=== PATIENT | female | born 1940 | race Caucasian/White ===

== ENCOUNTER 2018-12-04 11:45 | Emergency (ER) | payer MEDICARE, MEDICAID, SELFPAY ==
[2018-12-04] VITALS (43 sets, daily range): BP systolic 94–148; BP diastolic 40–68; PULSE 70–82; RESP 11–30; TEMP 37; O2SAT 90–99
--- NOTE | 2018-12-04 12:21 | W.ED.GENAD ---
Discharge Plan Disposition Patient Disposition: [facility] Condition: Improving Discharge Details Chief Complaint: Fever Clinical Impression: SIRS (systemic inflammatory response syndrome) Reason For Visit: YUNIOR Primary Care Provider: Serene Reddy ED Provider: Juan Diego Vidal Home Meds and New Rx's Prescriptions: No Action levothyroxine 137 MCG tablet 137 mcg PO DAILY RF: 0 atorvastatin [Lipitor] 80 MG tablet 80 mg PO DAILY RF: 0 metoprolol succinate 50 MG tablet extended release 24 hr 75 mg PO BID RF: 0 fexofenadine 180 MG tablet 180 mg PO DAILY RF: 0 aspirin [Aspirin Low Dose] 81 MG tablet,delayed release (DR/EC) 81 mg PO DAILY RF: 0 calcium carbonate 600 MG tablet 600 mg PO DAILY RF: 0 magnesium oxide 400 MG tablet 400 mg PO BID RF: 0 ferrous sulfate [iron] 325 MG tablet 325 mg PO DAILY RF: 0 nitroglycerin [Nitrostat] 0.4 MG tablet, sublingual 0.4 mg Sublingual DIRECTED PRNRF: 0 docusate sodium [Colace] 100 MG capsule 200 mg PO DAILY RF: 0 hydralazine 50 MG tablet 50 mg PO BID RF: 0 multivitamin 1 EACH capsule 1 ea PO DAILY RF: 0 lisinopril 2.5 MG tablet 2.5 mg PO DAILY RF: 0 diltiazem HCl 90 MG tablet 180 mg PO DAILY RF: 0 insulin aspart U-100 [Novolog PenFill U-100 Insulin] 100 UNIT/1 ML cartridge 40 u Sub-Q DAILY RF: 0 escitalopram oxalate 10 MG tablet 10 mg PO DAILY RF: 0 omega-3 fatty acids-fish oil [Fish Oil] 1 EACH capsule 1 ea PO DAILY RF: 0 insulin lispro [Humalog U-100 Insulin] 100 UNIT/1 ML cartridge RF: 0 insulin lispro [Humalog KwikPen Insulin] 100 UNIT/1 ML insulin pen RF: 0 sevelamer carbonate [Renvela] 800 MG tablet 800 mg PO TID RF: 0 insulin glargine [Lantus Solostar U-100 Insulin] 300 UNITS/3 ML insulin pen 20 unit SQ DAILY RF: 0 acetaminophen 650 MG tablet extended release 650 mg PO Q6H PRN PRNRF: 0 cholecalciferol (vitamin D3) [Vitamin D3] 400 UNIT capsule 400 unit PO DAILY RF: 0 Medical Decision Making 69-year-old female presents from dialysis with fever. She has history of sepsis with MRSA bacteremia in the past. At dialysis she was given acetaminophen, blood cultures were obtained. She is followed by Dr. Hdz. She arrives afebrile and otherwise well-appearing. Patient has a history of dialysis catheter infections in the past. She does continue to make urine. Differential diagnosis includes influenza, urinary tract infection, chest catheter infection. Blood cultures obtained in addition to that obtained at dialysis. Patient had screening laboratories obtained. She has an elevated white blood cell count of 19 with a lactic acid of 2.4. Troponin is negative and the remainder of her chemistries are reassuring. Case discussed with on-call nephrology at [facility], they are on able to accept in transfer due to lack of bed availability. They recommend admission, 15 mg/kg of vancomycin and if there is some correction of her white blood cell count and lactic acidosis she may be discharged to home with next dose of antibiotics in dialysis. Case discussed with Dr De La Fuente who states he feels he must refuse admission given patients history of MWF hemodialysis. The patient had received 1 g of vancomycin at dialysis and additional 500 mg was administered in the ED. [facility] contacted, case discussed with hospitalist, and they have placed the patient on waiting list for inpatient bed but unable to accept due to lack of available bed at this time. I called back [facility] who states they hope to be able to make a bed the patient this afternoon. They agree with ongoing management and patient accepted to Dr Richter service.. ECG Data Attestation: I personally reviewed and interpreted this ECG (s) as follows: Interpretation: Normal sinus rhythm, rate of 80, QRS is narrow, there are T wave inversions present in inferolateral leads without ST segment elevation HPI General Mode of arrival: EMS. Date/Time Provider Initiated Documentation: 12/04/18 11:50. Limitations to Documentation: no limitations. Information obtained by: patient and EMS. History of Present Illness 77 year old F presents to the emergency department with the chief complaint of Fever and chills at dialysis this morning, described as moderate, Patient started experiencing this minute(s) and it has been now resolved. No relieving factors improve symptom(s), No exacerbating factors reported . Patient notes no other symptoms.. Patient did receive the following treatments prior to arrival, none HPI Narrative: 69-year-old female presents from dialysis stating that she awoke this morning feeling normal, felt slight chills at home and then developed a fever at dialysis. She had a complete dialysis run and then was brought to the ER by EMS Related Data Home Medications Medication Instructions Recorded Confirmed aspirin [Low Dose Aspirin Ec] 81 mg PO DAILY tab-cap NS 08/20/16 01/26/18 atorvastatin [Lipitor] 80 mg PO DAILY tab-cap NS 08/20/16 01/26/18 calcium carbonate 600 mg PO DAILY NS 08/20/16 01/26/18 diltiazem HCl 180 mg PO DAILY NS 08/20/16 01/26/18 docusate sodium [Colace] 200 mg PO DAILY tab-cap NS 08/20/16 01/26/18 escitalopram oxalate 10 mg PO DAILY tab-cap NS 08/20/16 01/26/18 ferrous sulfate [Iron] 325 mg PO DAILY NS 08/20/16 01/26/18 fexofenadine 180 mg PO DAILY tab-cap NS 08/20/16 12/10/16 hydralazine 50 mg PO BID tab-cap NS 08/20/16 01/26/18 insulin aspart U-100 [Novolog] 40 u SUB-Q DAILY NS 08/20/16 01/24/17 levothyroxine 137 mcg PO DAILY tab-cap NS 08/20/16 01/26/18 lisinopril 2.5 mg PO DAILY tab-cap NS 08/20/16 01/26/18 magnesium oxide 400 mg PO BID NS 08/20/16 01/26/18 metoprolol succinate 75 mg PO BID tab-cap NS 08/20/16 01/26/18 multivitamin 1 ea PO DAILY NS 08/20/16 01/26/18 nitroglycerin [Nitrostat] 0.4 mg SUBLINGUAL DIRECTED PRN 08/20/16 01/26/18 NS omega-3 fatty acids-fish oil [Fish 1 ea PO DAILY NS 08/20/16 01/26/18 Oil 1,000 Mg Capsule] insulin glargine [Lantus Solostar 20 unit SQ DAILY 12/10/16 12/10/16 U-100 Insulin] acetaminophen 650 mg PO Q6H PRN PRN 01/24/17 01/26/18 cholecalciferol (vitamin D3) 400 unit PO DAILY 01/24/17 01/24/17 [Vitamin D] insulin lispro [Humalog Syringe] NS 06/03/17 insulin lispro [Humalog] NS 06/03/17 sevelamer carbonate [Renvela] 800 mg PO TID tab-cap NS 06/03/17 01/26/18 Allergies Allergy/AdvReac Type Severity Reaction Status Date / Time adhesive tape Allergy Unverified 01/26/18 14:50 gabapentin Allergy Unverified 01/26/18 14:50 hydroxyzine Allergy Unverified 01/26/18 14:50 lorazepam Allergy Unverified 01/26/18 14:50 nitroglycerin Allergy Unverified 01/26/18 14:50 [From Nitro-Dur] pregabalin [From Lyrica] Allergy Unverified 01/26/18 14:50 General Stated Complaint: Fever JADA: 2 Review of Systems Review of Systems 8 systems reviewed and otherwise negative PFSH Medical History Firocyst with benign ductal hyperplasia Hyperthyroidism [place] (myocardial infarction) Moderate nonproliferative diabetic retinopathy of both eyes Nuclear Sclerosis, Bilateral Tubular adenoma of colon Type 2 diabetes mellitus Surgical History Amputation Bilateral above knee amputations Cholecystectomy Colonoscopy (09/18/16) Colporrhaphy Coronary Stent Femoral Endarectomy Hysterectomy Family History Father Colon cancer Exam Narrative Exam Narrative: GEN: awake, alert, oriented 3. Pleasant, well groomed, interactive. HEAD: Normocephalic, atraumatic ENT: Mucous membranes moist, oropharynx unremarkable, External ear exam unremarkable EYES: PERRL, EOMI NECK: Full ROM, no MONIK, no menigismus CHEST/RESP: Right anterior chest dialysis catheter, nontender, clear to auscultation bilateral, no wheeze/rhonchi/rales CARDIOVASCULAR: RRR, no murmur, rub savanah. 2+ Rad pulse bilateral ABDOMEN: Soft, nontender, no mass. +Bowel sounds EXT: Bilateral [id number] amputation, no edema, no rash Neuro: Grossly normal neurologic exam, conversant, interactive. Psych: Speech fluent, thoughts congruent, affect normal exam Course Vital Signs Temperature 37 C 12/04/18 11:56 Pulse 80 12/04/18 11:56 Respiratory Rate 14 12/04/18 11:56 Blood Pressure 105/44 L 12/04/18 11:56 Pulse Oximetry 98 12/04/18 11:56 Temperature 37 C 12/04/18 11:56 Temperature Source Skin 12/04/18 11:56 Pulse 80 12/04/18 11:56 Respiratory Rate 14 12/04/18 11:56 Blood Pressure 105/44 L 12/04/18 11:56 Blood Pressure Position Supine 12/04/18 11:56 Pulse Oximetry 98 12/04/18 11:56 Oxygen Delivery Method Room Air 12/04/18 11:56 Oxygen Flow Rate 0 12/04/18 11:56 Pain Level 0 12/04/18 11:56 Lab/Test Results Lab/Test Results: 12/04/18 12:19 Blood Blood Culture - Pending 12/04/18 12:19 Blood Blood Culture - Pending
--- NOTE | 2018-12-04 12:24 | ED.GENADUL_ITS ---
Discharge Plan Disposition Patient Disposition: [facility] Condition: Improving Discharge Details Chief Complaint: Fever Clinical Impression: SIRS (systemic inflammatory response syndrome) Reason For Visit: YUNIOR Primary Care Provider: Serene Reddy ED Provider: Juan Diego Vidal Home Meds and New Rx's Prescriptions: No Action levothyroxine 137 MCG tablet 137 mcg PO DAILY RF: 0 atorvastatin [Lipitor] 80 MG tablet 80 mg PO DAILY RF: 0 metoprolol succinate 50 MG tablet extended release 24 hr 75 mg PO BID RF: 0 fexofenadine 180 MG tablet 180 mg PO DAILY RF: 0 aspirin [Aspirin Low Dose] 81 MG tablet,delayed release (DR/EC) 81 mg PO DAILY RF: 0 calcium carbonate 600 MG tablet 600 mg PO DAILY RF: 0 magnesium oxide 400 MG tablet 400 mg PO BID RF: 0 ferrous sulfate [iron] 325 MG tablet 325 mg PO DAILY RF: 0 nitroglycerin [Nitrostat] 0.4 MG tablet, sublingual 0.4 mg Sublingual DIRECTED PRNRF: 0 docusate sodium [Colace] 100 MG capsule 200 mg PO DAILY RF: 0 hydralazine 50 MG tablet 50 mg PO BID RF: 0 multivitamin 1 EACH capsule 1 ea PO DAILY RF: 0 lisinopril 2.5 MG tablet 2.5 mg PO DAILY RF: 0 diltiazem HCl 90 MG tablet 180 mg PO DAILY RF: 0 insulin aspart U-100 [Novolog PenFill U-100 Insulin] 100 UNIT/1 ML cartridge 40 u Sub-Q DAILY RF: 0 escitalopram oxalate 10 MG tablet 10 mg PO DAILY RF: 0 omega-3 fatty acids-fish oil [Fish Oil] 1 EACH capsule 1 ea PO DAILY RF: 0 insulin lispro [Humalog U-100 Insulin] 100 UNIT/1 ML cartridge RF: 0 insulin lispro [Humalog KwikPen Insulin] 100 UNIT/1 ML insulin pen RF: 0 sevelamer carbonate [Renvela] 800 MG tablet 800 mg PO TID RF: 0 insulin glargine [Lantus Solostar U-100 Insulin] 300 UNITS/3 ML insulin pen 20 unit SQ DAILY RF: 0 acetaminophen 650 MG tablet extended release 650 mg PO Q6H PRN PRNRF: 0 cholecalciferol (vitamin D3) [Vitamin D3] 400 UNIT capsule 400 unit PO DAILY RF: 0 Medical Decision Making 69-year-old female presents from dialysis with fever. She has history of sepsis with MRSA bacteremia in the past. At dialysis she was given acetaminophen, blood cultures were obtained. She is followed by Dr. Hdz. She arrives afebrile and otherwise well-appearing. Patient has a history of dialysis catheter infections in the past. She does continue to make urine. Differential diagnosis includes influenza, urinary tract infection, chest catheter infection. Blood cultures obtained in addition to that obtained at dialysis. Patient had screening laboratories obtained. She has an elevated white blood cell count of 19 with a lactic acid of 2.4. Troponin is negative and the remainder of her chemistries are reassuring. Case discussed with on-call nephrology at [facility], they are on able to accept in transfer due to lack of bed availability. They recommend admission, 15 mg/kg of vancomycin and if there is some correction of her white blood cell count and lactic acidosis she may be discharged to home with next dose of antibiotics in dialysis. Case discussed with Dr De La Fuente who states he feels he must refuse admission given patients history of MWF hemodialysis. The patient had received 1 g of vancomycin at dialysis and additional 500 mg was administered in the ED. [facility] contacted, case discussed with hospitalist, and they have placed the patient on waiting list for inpatient bed but unable to accept due to lack of available bed at this time. I called back [facility] who states they hope to be able to make a bed the patient this afternoon. They agree with ongoing management and patient accepted to Dr Richter service.. ECG Data Attestation: I personally reviewed and interpreted this ECG (s) as follows: Interpretation: Normal sinus rhythm, rate of 80, QRS is narrow, there are T wave inversions present in inferolateral leads without ST segment elevation HPI General Mode of arrival: EMS . Date/Time Provider Initiated Documentation: 12/04/18 11:50 . Limitations to Documentation: no limitations . Information obtained by: patient and EMS . History of Present Illness 77 year old F presents to the emergency department with the chief complaint of Fever and chills at dialysis this morning, described as moderate, Patient started experiencing this minute(s) and it has been now resolved. No relieving factors improve symptom(s), No exacerbating factors reported . Patient notes no other symptoms.. Patient did receive the following treatments prior to arrival, none HPI Narrative: 69-year-old female presents from dialysis stating that she awoke this morning feeling normal, felt slight chills at home and then developed a fever at dialysis. She had a complete dialysis run and then was brought to the ER by EMS Related Data Home Medications Medication Instructions Recorded Confirmed aspirin [Low Dose Aspirin Ec] 81 mg PO DAILY tab-cap NS 08/20/16 01/26/18 atorvastatin [Lipitor] 80 mg PO DAILY tab-cap NS 08/20/16 01/26/18 calcium carbonate 600 mg PO DAILY NS 08/20/16 01/26/18 diltiazem HCl 180 mg PO DAILY NS 08/20/16 01/26/18 docusate sodium [Colace] 200 mg PO DAILY tab-cap NS 08/20/16 01/26/18 escitalopram oxalate 10 mg PO DAILY tab-cap NS 08/20/16 01/26/18 ferrous sulfate [Iron] 325 mg PO DAILY NS 08/20/16 01/26/18 fexofenadine 180 mg PO DAILY tab-cap NS 08/20/16 12/10/16 hydralazine 50 mg PO BID tab-cap NS 08/20/16 01/26/18 insulin aspart U-100 [Novolog] 40 u SUB-Q DAILY NS 08/20/16 01/24/17 levothyroxine 137 mcg PO DAILY tab-cap NS 08/20/16 01/26/18 lisinopril 2.5 mg PO DAILY tab-cap NS 08/20/16 01/26/18 magnesium oxide 400 mg PO BID NS 08/20/16 01/26/18 metoprolol succinate 75 mg PO BID tab-cap NS 08/20/16 01/26/18 multivitamin 1 ea PO DAILY NS 08/20/16 01/26/18 nitroglycerin [Nitrostat] 0.4 mg SUBLINGUAL DIRECTED PRN 08/20/16 01/26/18 NS omega-3 fatty acids-fish oil [Fish 1 ea PO DAILY NS 08/20/16 01/26/18 Oil 1,000 Mg Capsule] insulin glargine [Lantus Solostar 20 unit SQ DAILY 12/10/16 12/10/16 U-100 Insulin] acetaminophen 650 mg PO Q6H PRN PRN 01/24/17 01/26/18 cholecalciferol (vitamin D3) 400 unit PO DAILY 01/24/17 01/24/17 [Vitamin D] insulin lispro [Humalog Syringe] NS 06/03/17 insulin lispro [Humalog] NS 06/03/17 sevelamer carbonate [Renvela] 800 mg PO TID tab-cap NS 06/03/17 01/26/18 Allergies Allergy/AdvReac Type Severity Reaction Status Date / Time adhesive tape Allergy Unverified 01/26/18 14:50 gabapentin Allergy Unverified 01/26/18 14:50 hydroxyzine Allergy Unverified 01/26/18 14:50 lorazepam Allergy Unverified 01/26/18 14:50 nitroglycerin Allergy Unverified 01/26/18 14:50 [From Nitro-Dur] pregabalin [From Lyrica] Allergy Unverified 01/26/18 14:50 General Stated Complaint: Fever JADA: 2 Review of Systems Review of Systems 8 systems reviewed and otherwise negative PFSH Medical History Firocyst with benign ductal hyperplasia Hyperthyroidism [place] (myocardial infarction) Moderate nonproliferative diabetic retinopathy of both eyes Nuclear Sclerosis, Bilateral Tubular adenoma of colon Type 2 diabetes mellitus Surgical History Amputation Bilateral above knee amputations Cholecystectomy Colonoscopy (09/18/16) Colporrhaphy Coronary Stent Femoral Endarectomy Hysterectomy Family History Father Colon cancer Exam Narrative Exam Narrative: GEN: awake, alert, oriented 3. Pleasant, well groomed, interactive. HEAD: Normocephalic, atraumatic ENT: Mucous membranes moist, oropharynx unremarkable, External ear exam unremar kable EYES: PERRL, EOMI NECK: Full ROM, no MONIK, no menigismus CHEST/RESP: Right anterior chest dialysis catheter, nontender, clear to auscultation bilateral, no wheeze/rhonchi/rales CARDIOVASCULAR: RRR, no murmur, rub savanah. 2+ Rad pulse bilateral ABDOMEN: Soft, nontender, no mass. +Bowel sounds EXT: Bilateral [id number] amputation, no edema, no rash Neuro: Grossly normal neurologic exam, conversant, interactive. Psych: Speech fluent, thoughts congruent, affect normal exam Course Vital Signs Temperature 37 C 12/04/18 11:56 Pulse 80 12/04/18 11:56 Respiratory Rate 14 12/04/18 11:56 Blood Pressure 105/44 L 12/04/18 11:56 Pulse Oximetry 98 12/04/18 11:56 Temperature 37 C 12/04/18 11:56 Temperature Source Skin 12/04/18 11:56 Pulse 80 12/04/18 11:56 Respiratory Rate 14 12/04/18 11:56 Blood Pressure 105/44 L 12/04/18 11:56 Blood Pressure Position Supine 12/04/18 11:56 Pulse Oximetry 98 12/04/18 11:56 Oxygen Delivery Method Room Air 12/04/18 11:56 Oxygen Flow Rate 0 12/04/18 11:56 Pain Level 0 12/04/18 11:56 Lab/Test Results Lab/Test Results: 12/04/18 12:19 Blood Blood Culture - Pending 12/04/18 12:19 Blood Blood Culture - Pending
[2018-12-04 12:37] LABS: Abs Immature Grans 0.08 k/cumm (0.0-0.09); HCT 41.8 % (36.0-46.0); HGB 12.9 g/dL (12.0-15.5); Mean Corp. HGB Concentration 30.9 g/dL (32.0-36.0); Mean Corpuscular Hemoglobin 31.5 pg (27.0-33.0); Mean Corpuscular Volume 102.2 fL (80-95); Mean Platelet Volume 9.2 fL (8.0-11.0); Platelet Count 207 x1000/uL (130-400); RBC 4.09 m/cumm (4.00-5.20); RBC Distribution Width 18.5 % (11.7-14.6); White Blood Cell Count 19.62 k/cumm (4.4-10.8)
[2018-12-04 12:38] LABS: Lactate 2.4 mmol/L (0.6-1.4)
[2018-12-04 13:02] LABS: Troponin I 0.03 ng/mL (0.00-0.06)
[2018-12-04 13:03] LABS: ALT 13 U/L (12-78); AST 16 U/L (15-37); Alkaline Phosphatase 117 U/L (46-116); Anion Gap 7.6 mmol/L (3-11); BUN 11 mg/dL (7-18); Bilirubin, Total 0.5 mg/dL (0.2-1.0); C-Reactive Protein 1.67 mg/dL (0.0-0.3); CO2 32.4 mmol/L (21.0-32.0); CREATININE 3.03 mg/dL (0.55-1.02); Calcium 9.3 mg/dL (8.5-10.1); Chloride 99 mmol/L (98-107); Estimated GFR 14.92 (mL/min/1.73m2); Glucose 131 mg/dL (70-100); Potassium 3.8 mmol/L (3.5-5.1); Sodium 139 mmol/L (136-145); Total Protein 6.9 g/dL (6.4-8.2)
[2018-12-04 13:15] LABS: Absolute Neutrophil Count 17.27 k/cumm (1.2-6.7)
[2018-12-04 13:16] LABS: Absolute Eosinophil Count 0.39 k/cumm (0.0-0.7); Absolute Lymphocyte Count 1.37 k/cumm (1.2-3.4); Absolute Monocyte Count 0.59 k/cumm (0.11-0.7); Diff Comment Manual Differential; Nucleated RBC 1 /100WBC
[2018-12-04 13:17] LABS: Macrocytosis 1+
[2018-12-04 13:40] LABS: Bilirubin Moderate (Negative); Blood Trace-intact (Negative); Clarity Sl Cloudy; Glucose Negative (Negative); Ketones 15 mg/dL (Negative); Leukocyte Esterase Small (Negative); Nitrite Negative (Negative); Urobilinogen 0.2 EU/dL (Up TO 0.2); pH 5.5 (5-8)
--- NOTE | 2018-12-04 13:45 | DI.RAD_ITS ---
SYMPTOMS/DIAGNOSIS: FEVER AP AND LATERAL CHEST: There is a right subclavian catheter in position. The tip of which appears to lie near the junction of right atrium and superior vena cava, unchanged in position from 01/26/18. The heart is not enlarged. The lungs are grossly clear. CONCLUSION: No evidence of acute change.
[2018-12-04 13:53] LABS: Epithelial Cells Many HPF (Negative)
[2018-12-04 13:54] LABS: C & S Indicated? No/Sq. Contamination
[2018-12-04] MEDS: VANCOMYCIN 1,500 MG in Normal Saline 500 ML 333.3333 MG IVPB (14:33)
[2018-12-04 15:42] LABS: Lactate-non-spesis 1.3 mmol/l (0.6-1.4)
== END 2018-12-04 17:11 | disposition short-term general hospital (02) ==
PROVIDERS: Emergency Provider Emergency Medicine; PCP Nurse Practitioner
DX: E87.2 Acidosis (principal); D72.829 Elevated white blood cell count, unspecified; E11.22 Type 2 diabetes mellitus with diabetic chronic kidney disease; N18.6 End stage renal disease; Z79.4 Long term (current) use of insulin; Z99.2 Dependence on renal dialysis; J44.9 Chronic obstructive pulmonary disease, unspecified; R65.10 Systemic inflammatory response syndrome (SIRS) of non-infectious origin without acute organ dysfunction
CPT/HCPCS: 36415; 80053; 87040; 87449; 93005; 96365; 99285; 71046; 81003; 81015; 83605; 84484; 85025; 86140; 93010

== ENCOUNTER 2019-09-10 11:03 | Observation (INO) | payer MEDICARE, MEDICAID, SELFPAY ==
[2019-09-10] VITALS (63 sets, daily range): BP systolic 85–184; BP diastolic 31–68; PULSE 62–82; RESP 10–23; TEMP 36.6–37; O2SAT 90–100
--- NOTE | 2019-09-10 11:44 | DI.RAD_ITS ---
EXAM: XR WRIST RT COMPLETE INDICATION: fall, pain, tender. COMPARISON: No exams were available for comparison TECHNIQUE: 2D digital imaging was performed. FINDINGS: No fracture or dislocation is seen. Vascular calcifications are noted. Bones appear osteoporotic. Degenerative changes are present. IMPRESSION: No acute abnormality.
--- NOTE | 2019-09-10 11:44 | DI.RAD_ITS ---
EXAM: XR SHOULDER LT COMPLETE 2+V INDICATION: fall, pain, tender. COMPARISON: CHEST 2 VIEWS PA,LAT from 01/26/2018 XR CHEST 2V PA LATERAL from 12/04/2018 TECHNIQUE: 2D digital imaging was performed. FINDINGS: There is a fracture through the surgical neck of the humerus which appears subacute. There is commin ution at the greater tuberosity as well as at the medial aspect of the humeral head. There is no radha dence of dislocation. AC joint is not widened. IMPRESSION: Mildly comminuted fracture of the proximal humerus which appears subacute. Clinical correlation is r ecommended.
--- NOTE | 2019-09-10 11:44 | DI.CT_ITS ---
EXAM: CT HEAD CERVICAL SPINE WO CLINICAL HISTORY: fall, trauma, pain TECHNIQUE: Noncontrast COMPARISON: XR CHEST 2V PA LATERAL from 12/04/2018 FINDINGS: HEAD CT: No intracranial hemorrhage or skull fracture is seen. There is mild atrophy. The ventricl es are normal in size. No mass or infarct is seen. The sinuses, orbits and mastoid air cells are un remarkable. C-SPINE CT: No fracture or subluxation is seen. There are degenerative disc changes greatest at C5-6 . The bones appear osteoporotic. There is no significant central canal stenosis. No pneumothorax i s seen at the lung apices. IMPRESSION: No acute abnormality.
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
[2019-09-10] MEDS: Lidocaine 5% Patch 1 PATCH (14:48)
[2019-09-10] MEDS: HYDROmorphone 2 MG/ML VIAL 1 MG IVP (17:04)
[2019-09-10 17:08] LABS: HCT 38.5 % (36.0-46.0); HGB 12.1 g/dL (12.0-15.5); Mean Corp. HGB Concentration 31.4 g/dL (32.0-36.0); Mean Corpuscular Hemoglobin 32.4 pg (27.0-33.0); Mean Corpuscular Volume 102.9 fL (80-95); Mean Platelet Volume 8.5 fL (8.0-11.0); Platelet Count 216 x1000/uL (130-400); RBC 3.74 m/cumm (4.00-5.20); White Blood Cell Count 12.82 k/cumm (4.4-10.8)
[2019-09-10 17:15] LABS: Anion Gap 5.5 mmol/L (3-11); BUN 7 mg/dL (7-18); CO2 30.5 mmol/L (21.0-32.0); CREATININE 2.65 mg/dL (0.55-1.02); Chloride 100 mmol/L (98-107); Estimated GFR 17.37 (mL/min/1.73m2); Glucose 119 mg/dL (70-100); Potassium 4.8 mmol/L (3.5-5.1); Sodium 136 mmol/L (136-145)
--- NOTE | 2019-09-10 19:43 | NUR.NOTE ---
Nursing Note: patient repositioned to right side, resting quietly, comfortable at present,vital signs stable.
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
[2019-09-10] MEDS: Atorvastatin 40 MG TAB 80 MG PO (22:42)
[2019-09-11] MEDS: HYDROmorphone 2 MG/ML VIAL 0.5 MG IVP ×2 (00:32→08:44)
[2019-09-11] MEDS: Normal Saline Flush 10 ML SYR IVP ×5 (00:33→22:10)
[2019-09-11 01:00] VITALS: BP 125/60; PULSE 67; RESP 18; TEMP 36.7; O2SAT 96
[2019-09-11 07:30] VITALS: BP 154/66; PULSE 80; RESP 20; TEMP 36.1; O2SAT 95
[2019-09-11] MEDS: Nadolol 40 MG TAB 20 MG PO (08:35)
[2019-09-11] MEDS: hydrALAZINE 25 MG TAB 50 MG PO ×2 (08:36→19:18)
[2019-09-11] MEDS: Lisinopril 10 MG TAB PO ×2 (08:36→19:19)
[2019-09-11] MEDS: Isosorbide Mononitrate 60 MG TABCR 180 MG PO (08:36)
[2019-09-11] MEDS: Ferrous Sulfate 325 MG TAB PO (08:37)
[2019-09-11] MEDS: Cholecalciferol (Vitamin D3) 400 UNIT TAB PO (08:37)
[2019-09-11] MEDS: Apixaban 2.5 MG TAB PO ×2 (08:37→19:19)
[2019-09-11] MEDS: Docusate Sodium 100 MG CAP 200 MG PO (08:37)
[2019-09-11] MEDS: Escitalopram 10 MG TAB PO (08:37)
[2019-09-11] MEDS: Ondansetron 4 MG TAB PO (09:13)
[2019-09-11] MEDS: Patch Removal 1 EACH TP (09:42)
--- NOTE | 2019-09-11 11:31 | PHARADMIT ---
Admission Pharmacy Clinical Review HUMERUS FRACTURE, (in Bilateral above knee amputee on Dialysis) Code Status Full Code Current Weight Wgt-99 kg Renally Cleared and Narrow Therapeutic Index Meds Bilateral above knee amputee QTc Value / Action Taken QTc-482 in ,.. BP Control, Fever BP-154/66 Tmax-37C Electrolytes reviewed Na- 136 K+4.8 DVT Prophylaxis Eliquis Opiate Usage / Scheduled Bowel Regimen Ordered Yes Yes Plt/SCr for Heparin / Enoxaparin Plts-216 SCr-2.65 INR for Warfarin NA H/H stable, WBC/Bands H&H- 12.1/38.5 WBC- 12.82 Antibiotic appropriateness none Cultures and Sensitivities none Surgical ABX d/c within 24 hr NA DM control / Insulin Dosing BG-119 Aspart Heart Failure (Check EF%) (RAJINDER's, B-Block, Diuretics) Hydralazine, Imdur,Lisinopril, Nadolol, NTG IV to PO Switch No Home Meds Reviewed Yes Home Meds Not Ordered Kris Cerda (Renvela) awaiting
[2019-09-11] MEDS: Insulin Aspart 300 UNITS/3 ML PEN SC (11:59)
--- NOTE | 2019-09-11 14:10 | PGE_ITS ---
Date of Service Date of service: 09/11/19 Time of Service: 14:10 Assessment and Plan Assessment and plan (1) Humerus fracture: Start date: 09/11/19 Start time: 14:31 Status: Acute Assessment and plan: In observation while awaiting a bed at [facility] for humerus fx after receiving dialysis. Receives dialysis MWF. (2) ESRD (end stage renal disease): Start date: 09/11/19 Start time: 14:31 Status: Acute Assessment and plan: Receives dialysis MWF, last dialysis day was yesterday. No c/o SOB, CP. Will need transfer for dialysis by Friday. Bed was said to be available tomorrow at [facility], calling [facility] for verification. (3) Chronic anticoagulation: Start date: 09/11/19 Start time: 14:36 Status: Acute Assessment and plan: history of afib, regular rate and rhytm at this time. On apixaban 2.5 mg for afib that is controlled. (4) DVT prophylaxis: Start date: 09/11/19 Start time: 14:40 Status: Acute Assessment and plan: see above. Above plan discussed with Dr. De La Fuente who is in agreement. Subjective Subjective Patient reports: no new complaints Interval history since last seen: Pain is controlled at this time. Left shoulder is swollen will ice QID. Ortho was asked to take a look at films; patient is in sling. Will continue to monitor. Dialysis MWF, plan is for patient to be transferred to [facility] tomorrow. Exam Narrative Exam Narrative: Const: elderly female sleeping in bed. Eyes: PERRLA, EOMI Neck: no lyphedema, no jvd, no goiter Resp: LSC to all bases, no wheezing, rhonchi Cardio: regular rate and rhythm, no murmur GI: abd soft nontender, BSx4 quads Neuro: AAOx3 Extrem: AKA bilaterally,old nonfunctioning fistula to RUE. Left shoulder swollen. Objective Objective Clinical Data: Abnormal lab results 09/10/19 09/10/19 Range/Units 17:00 17:00 WBC 12.82 H (4.4-10.8) k/cumm RBC 3.74 L (4.00-5.20) m/cumm MCV 102.9 H (80-95) fL MCHC 31.4 L (32.0-36.0) g/dL RDW 15.0 H (11.7-14.6) % Creatinine 2.65 H (0.55-1.02) mg/dL Glucose 119 H (70-100) mg/dL Vital Signs Temperature 36.1 C L 09/11/19 07:30 Temperature Source Temporal Artery Scan 09/11/19 07:30 Pulse 80 09/11/19 07:30 Pulse Rhythm Regular 09/11/19 12:22 Pulse 69 09/10/19 21:20 Respiratory Rate 20 09/11/19 07:30 Respiratory Effort Non-Labored 09/11/19 12:22 Respiratory Depth Normal 09/11/19 12:22 Respiratory Pattern Normal 09/11/19 12:22 Blood Pressure 154/66 H 09/11/19 07:30 Blood Pressure Mean 54 09/10/19 21:00 Blood Pressure Position Supine 09/10/19 11:29 Pulse Oximetry 95 09/11/19 07:30 Oxygen Delivery Method Room Air 09/11/19 07:30 Oxygen Flow Rate 0 09/11/19 07:30 Pain Level 4 09/11/19 09:44 Comment 09/11/19 07:30 Intake & Output 09/10/19 09/11/19 09/11/19 23:59 11:59 23:59 Intake Total 300 / 300 Balance 300 / 300 Weight 99 kg Intake: Oral 300 / 300 Other: Comment pt has not voided since being on the unit, charge nurse made aware Laboratory Results WBC 12.82 k/cumm (4.4-10.8) H 09/10/19 17:00 RBC 3.74 m/cumm (4.00-5.20) L 09/10/19 17:00 Hgb 12.1 g/dL (12.0-15.5) 09/10/19 17:00 Hct 38.5 % (36.0-46.0) 09/10/19 17:00 MCV 102.9 fL (80-95) H 09/10/19 17:00 MCH 32.4 pg (27.0-33.0) 09/10/19 17:00 MCHC 31.4 g/dL (32.0-36.0) L 09/10/19 17:00 RDW 15.0 % (11.7-14.6) H 09/10/19 17:00 Plt Count 216 x1000/uL (130-400) 09/10/19 17:00 MPV 8.5 fL (8.0-11.0) 09/10/19 17:00 Sodium 136 mmol/L (136-145) 09/10/19 17:00 Potassium 4.8 mmol/L (3.5-5.1) 09/10/19 17:00 Chloride 100 mmol/L (98-107) 09/10/19 17:00 Carbon Dioxide 30.5 mmol/L (21.0-32.0) 09/10/19 17:00 Anion Gap 5.5 mmol/L (3-11) 09/10/19 17:00 BUN 7 mg/dL (7-18) 09/10/19 17:00 Creatinine 2.65 mg/dL (0.55-1.02) H 09/10/19 17:00 Estimated GFR/1.73 m2 17.37 (mL/min/1.73m2) 09/10/19 17:00 Glucose 119 mg/dL (70-100) H 09/10/19 17:00 Calcium 9.0 mg/dL (8.5-10.1) 09/10/19 17:00
[2019-09-11 16:00] VITALS: BP 146/62; PULSE 68; RESP 16; TEMP 36.9; O2SAT 2
[2019-09-11] MEDS: Acetaminophen 325 MG TAB 650 MG PO ×2 (16:01→22:10)
[2019-09-11] MEDS: MORPHine 2 MG/ML SYR 1 MG IVP ×3 (16:01→22:10)
--- NOTE | 2019-09-11 16:27 | PDOC.CMIN ---
Care Management Initial Assess REASON FOR HOSPITALIZATION:: FX Humerus PAST MEDICAL HISTORY/PAST SURGICAL HISTORY:: Medical: Firocyst with benign ductal hyperplasia, Hyperthyroidism, [place] (myocardial infarction), Moderate nonproliferative diabetic retinopathy of both eyes, Nuclear Sclerosis, Bilateral Tubular adenoma of colon, Type 2 diabetes mellitus. Surgical: amputation Left Great Toe 03/08/2014, Rigth Great Toe 11/30/14. Bilateral above knee amputations, Cholecystectomy, Colonoscopy (09/18/16). Colporrhaphy, Coronary Stent, Femoral Endarectomy, Right Common with wound vac placement for closure, Hysterectomy PREVIOUS FUNCTIONAL STATUS/SOCIAL/FAMILY SUPPORTS:: Lives alone. Has family, 2 daughters, in the area but they are not able to provide support. States she does have a person come in a couple of times a week to help put but was unable to identify which agency provided services to her at home in [place], [place]. CURRENT FUNCTIONAL STATUS:: Lying in bed. Receiving IV fluids. Appears uncomfortable. R arm is splinted. Unable to manage any part of her own care at this time. ADVANCE DIRECTIVES:: None on file Has patient been provided with information about the portal?: Yes CODE STATUS:: Full Code CURRENT HOME/COMMUNITY SERVICES/EQUIPMENT:: Caregiver comes in to help a couple of times a week. Owns a wheelchair. PRIMARY CARE PHYSICIAN:: Serene Reddy NP POTENTIAL DISCHARGE NEEDS:: May need short term SNF or increasedn assistance at home. PATIENT/FAMILY EDUCATION NEEDS:: Discharge instructions ANTICIPATED BARRIERS TO DISCHARGE:: Lives alone and will e unable to help herself for several weeks due to the FX Humerus. TRANSPORTATION:: Uses RCT PLAN:: Naomi will be transferred to a tertiary center for Inpatient dialysis and follow up for the humeral fracture. [facility] offered a bed for admission Friday09/12/19.
[2019-09-11 16:34] VITALS: O2SAT 97
--- NOTE | 2019-09-11 17:58 | NUR.NOTE ---
Patient complaint of 8/10 pain at the time of assessment. She was medicated with morphine 1mg and tylenol 650mg. she said she cannot recall ever getting morphine before and she much rather take dilaudid because that had helped her pain. Patient is conscious, alert x 3. Left arm elevated on pillow and right arm in splint. AV fistula in the right arm. IV access to the left AC
[2019-09-11] MEDS: Lidocaine 5% Patch 1 PATCH TP (22:09)
[2019-09-11] MEDS: Atorvastatin 40 MG TAB 80 MG PO (22:10)
[2019-09-11 23:56] VITALS: BP 138/62; PULSE 66; RESP 19; TEMP 36.7; O2SAT 93
[2019-09-12] MEDS: Normal Saline Flush 10 ML SYR IVP (00:52)
[2019-09-12] MEDS: MORPHine 2 MG/ML SYR 1 MG IVP ×2 (00:52→08:56)
[2019-09-12 05:09] VITALS: BP 110/56; PULSE 69; RESP 18; TEMP 36.3; O2SAT 90
[2019-09-12 06:56] LABS: Abs Immature Grans 0.04 k/cumm (0.0-0.09); Absolute Basophil Count 0.02 k/cumm (0.0-0.2); Absolute Eosinophil Count 0.52 k/cumm (0.0-0.7); Absolute Lymphocyte Count 1.66 k/cumm (1.2-3.4); Absolute Monocyte Count 0.91 k/cumm (0.11-0.7); Absolute Neutrophil Count 6.95 k/cumm (1.2-6.7); Basophils % 0.2; Eosinophils % 5.1; HCT 36.4 % (36.0-46.0); HGB 11.2 g/dL (12.0-15.5); Immature Grans % 0.4; Lymphocytes % 16.4; Mean Corp. HGB Concentration 30.8 g/dL (32.0-36.0); Mean Corpuscular Hemoglobin 32.4 pg (27.0-33.0); Mean Corpuscular Volume 105.2 fL (80-95); Mean Platelet Volume 9.1 fL (8.0-11.0); Neutrophils % 68.9; Platelet Count 227 x1000/uL (130-400); RBC 3.46 m/cumm (4.00-5.20); RBC Distribution Width 15.1 % (11.7-14.6)
[2019-09-12 07:08] LABS: Anion Gap 10.5 mmol/L (3-11); BUN 33 mg/dL (7-18); CO2 27.5 mmol/L (21.0-32.0); Calcium 8.8 mg/dL (8.5-10.1); Chloride 100 mmol/L (98-107); Estimated GFR 6.32 (mL/min/1.73m2); Glucose 159 mg/dL (70-100); Magnesium 1.9 mg/dL (1.8-2.4); Potassium 5.1 mmol/L (3.5-5.1); Sodium 138 mmol/L (136-145)
[2019-09-12 07:18] LABS: CREATININE 6.36 mg/dL (0.55-1.02)
[2019-09-12 07:27] LABS: Diff Comment RBC Morph Reviewed; Macrocytosis 1+
[2019-09-12 08:33] VITALS: BP 122/61; PULSE 84; RESP 18; TEMP 37.9; O2SAT 97
[2019-09-12] MEDS: Nadolol 40 MG TAB 20 MG PO (08:51)
[2019-09-12] MEDS: Isosorbide Mononitrate 60 MG TABCR 180 MG PO (08:52)
[2019-09-12] MEDS: Cholecalciferol (Vitamin D3) 400 UNIT TAB PO (08:53)
[2019-09-12] MEDS: Docusate Sodium 100 MG CAP 200 MG PO (08:53)
[2019-09-12] MEDS: Apixaban 2.5 MG TAB PO (08:54)
[2019-09-12] MEDS: hydrALAZINE 25 MG TAB 50 MG PO (08:54)
[2019-09-12] MEDS: Calcium Carbonate 1.5 GM TAB PO (08:54)
[2019-09-12] MEDS: Escitalopram 10 MG TAB PO (08:54)
[2019-09-12] MEDS: Insulin Aspart 300 UNITS/3 ML PEN SC (08:54)
[2019-09-12] MEDS: Insulin Glargine 300 UNITS/3 ML PEN 20 UNITS SC (08:55)
[2019-09-12 09:11] VITALS: O2SAT 97
[2019-09-12] MEDS: Lisinopril 10 MG TAB PO (09:34)
[2019-09-12] MEDS: Patch Removal 1 EACH TP (10:39)
--- NOTE | 2019-09-12 10:45 | DSE_ITS ---
Date of service: 09/12/19 Time of Service: 10:45 DS: Diagnosis Discharge Diagnosis (1) Humerus fracture: Start date: 09/12/19 Start time: 10:45 Status: Acute Asessment and Plan: Transition to swing bed as patient is unable to care for self at home given lack of mobility to left arm and bilateral AKA. Trial oxycodone PO 2.5 q 8 hours as needed for pain. Unable to estimate GFR due to lack of accurate height. Will titrate to as needed to lowest dose effectiveness. (2) ESRD (end stage renal disease): Start date: 09/12/19 Start time: 10:47 Status: Acute Asessment and Plan: Will transfer via EMS to dialysis MWF at 550 am (3) Chronic anticoagulation: Start date: 09/12/19 Start time: 10:49 Status: Acute Asessment and Plan: History of afib. Continue medication (4) DVT prophylaxis: Status: Acute Discharge Plan Disposition Patient Disposition: [facility] SWING BED LEVEL 1 Condition: Stable Discharge Details Chief Complaint: Trauma Clinical Impression: Left wrist sprain, Fracture of humerus, left, closed Reason For Visit: HUMERUS FRACTURE Admit Date/Time: 09/10/19 20:22 Admit Provider: Tad Brenner Attending Provider: Tad Brenner Primary Care Provider: Serene Reddy ED Provider: Evert Sabillon Hospital Course Hospital Course: 78 y.o female with PMH of HD, HTN, Bilateral AKA, Afib (on anticoagulation), currently in NSR, ESRD on hemodialysis MWF at 550 am admitted to [facility] m/s obs for inability to care for self. Initially patient was said to be excepted at [facility] for transfer, so she was admitted to obs for pain management; following a humeral fracture seen by imaging in ED; however she was declined for transfer. CT of head in ED with no acute abnormality. Wrist xray with no acute abnormality. She is unable to move her left arm due to humeral fracture. There is no one to care for her at home and she requires dialysis three days week. Today she is being transitioned to swing bed 1 for PT/OT, pain management and ortho consultation and transport to dialysis center down the street. Her pain has been managed by IV dilaudid and morphine with good effect. We will transition to PO roxicodone 2.5 every 8 hours and titrate as needed, it is difficulty to assess accurate GFR in a patient without accurate height, therefore starting low and slow and titrate up if needed. Ortho will be consulted.; PT/OT to regain strength, patient would likely benefit from rehab to regain strength and mobility. Creatinine today was 6.36, she is due for hemodialysis tomorrow. Transport will be set up. Recheck labs Friday, and Friday. She denies CP, SOB, N/V/D. Home Meds and New Rx's Prescriptions: No Action levothyroxine 137 MCG tablet 137 mcg PO DAILY RF: 0 ferrous sulfate [iron] 325 MG tablet 325 mg PO DAILY RF: 0 nitroglycerin [Nitrostat] 0.4 MG tablet, sublingual 0.4 mg Sublingual DIRECTED PRNRF: 0 docusate sodium [Colace] 100 MG capsule 200 mg PO DAILY RF: 0 hydralazine 50 MG tablet 50 mg PO BID RF: 0 lisinopril 2.5 MG tablet 10 mg PO BID RF: 0 Novolog PenFill U-100 Insulin 100 UNIT/1 ML cartridge 6 - 10 u Sub-Q AC RF: 0 Eliquis 2.5 mg Tablet 2.5 mg PO BID RF: 0 atorvastatin [Lipitor] 80 mg Tablet 80 mg PO HS RF: 0 ondansetron HCl [Zofran] 4 mg Tablet 4 mg PO PRN PRNRF: 0 isosorbide mononitrate 120 mg Tablet Extended Release 24 Hr 180 mg PO DAILY RF: 0 nadolol 20 mg Tablet 20 mg PO DAILY RF: 0 escitalopram oxalate [Lexapro] 10 mg Tablet 10 mg PO DAILY RF: 0 Calcium 600 + D(3) 600-125 mg-unit Tablet 1 tab PO HS RF: 0 Sarna Original 0.5-0.5 % Lotion See Rx Instructions .ROUTE .COMPLEX RF: 0 Velphoro 500 mg Tablet,Chewable 500 mg PO QPC RF: 0 Lantus Solostar U-100 Insulin 300 UNITS/3 ML insulin pen 20 unit SQ DAILY RF: 0 acetaminophen 650 MG tablet extended release 650 mg PO Q6H PRN PRNRF: 0 Discharge Instructions Instructions: Hemodialysis (GEN) Additional Instructions: Transition to Swing bed level 1 Dialysis MWF Activity:: Activity as Tolerated Equipment/Supplies:: No Equipment Needed Diet:: Renal Diet DS: Summary Status at Discharge Functional status at discharge: wheelchair bound Overall status at discharge: patient is not back to baseline Mental Status: mental status grossly normal Speech and Movement: speech and movement normal Mood: congruent mood Affect: normal affect Exam Narrative Exam Narrative: Const: elderly female sleeping in bed. Eyes: PERRLA, EOMI Neck: no lyphedema, no jvd, no goiter Resp: LSC to all bases, no wheezing, rhonchi Cardio: regular rate and rhythm, no murmur GI: abd soft nontender, BSx4 quads Neuro: AAOx3 Extrem: AKA bilaterally,old nonfunctioning fistula to RUE. Left shoulder swollen. Right hand in splint, swollen. Psych Mental Status: mental status grossly normal Speech and Movement: speech and movement normal Mood: congruent mood Affect: normal affect DS: Data Vitals/I&O Vitals and I&O: Vital Signs Temperature 37.9 C H 09/12/19 08:33 Temperature Source Temporal Artery Scan 09/12/19 08:33 Pulse 84 09/12/19 08:33 Pulse Rhythm Regular 09/12/19 09:13 Pulse 69 09/10/19 21:20 Respiratory Rate 18 09/12/19 08:33 Respiratory Effort Non-Labored 09/12/19 09:13 Respiratory Depth Normal 09/12/19 09:13 Respiratory Pattern Normal 09/12/19 09:13 Blood Pressure 122/61 09/12/19 08:33 Blood Pressure Mean 54 09/10/19 21:00 Blood Pressure Position Supine 09/10/19 11:29 Pulse Oximetry 97 09/12/19 09:11 Oxygen Delivery Method Room Air 09/12/19 09:11 Oxygen Flow Rate 0 09/12/19 09:11 Pain Level 7 09/12/19 08:56 Comment 09/11/19 16:34 Intake & Output 09/11/19 09/11/19 09/12/19 11:59 23:59 11:59 Intake Total 300 / 360 60 / 360 360 / 360 Output Total 30 / 30 Balance 300 / 330 30 / 330 360 / 360 Intake: IV 20 / 20 Oral 300 / 340 40 / 340 360 / 360 Output: Urine 30 / 30 Other: Urine Color Dark Gisell Urine Odor None Comment pt has not voided since being on the unit, charge nurse made aware Stool Size Large Stool Characteristics Brown Voiding Methods Bedpan Data Completed and Pending Completed studies during hospitalization [Text1]: Exam(s) a RAD:XR shoulder LT complete 2+V EXAM: XR SHOULDER LT COMPLETE 2+V INDICATION: fall, pain, tender. COMPARISON: CHEST 2 VIEWS PA,LAT from 01/26/2018 XR CHEST 2V PA LATERAL from 12/04/2018 TECHNIQUE: 2D digital imaging was performed. FINDINGS: There is a fracture through the surgical neck of the humerus which appears subacute. There is comminution at the greater tuberosity as well as at the medial aspect of the humeral head. There is no evidence of dislocation. AC joint is not widened. IMPRESSION: Mildly comminuted fracture of the proximal humerus which appears subacute. Clinical correlation is recommend Exam(s) a RAD:XR wrist RT complete EXAM: XR WRIST RT COMPLETE INDICATION: fall, pain, tender. COMPARISON: No exams were available for comparison TECHNIQUE: 2D digital imaging was performed. FINDINGS: No fracture or dislocation is seen. Vascular calcifications are noted. Bones appear osteoporotic. Degenerative changes are present. IMPRESSION: No acute abnormality. Exam(s) a CT:CT head & cervical spine wo EXAM: CT HEAD CERVICAL SPINE WO CLINICAL HISTORY: fall, trauma, pain TECHNIQUE: Noncontrast COMPARISON: XR CHEST 2V PA LATERAL from 12/04/2018 FINDINGS: HEAD CT: No intracranial hemorrhage or skull fracture is seen. There is mild atrophy. The ventricles are normal in size. No mass or infarct is seen. The sinuses, orbits and mastoid air cells are unremarkable. C-SPINE CT: No fracture or subluxation is seen. There are degenerative disc changes greatest at C5-6. The bones appear osteoporotic. There is no significant central canal stenosis. No pneumothorax is seen at the lung apices. IMPRESSION: No acute abnormality. Labs on day of discharge: Labs from last 24 hours 09/12/19 09/12/19 06:30 06:30 WBC 10.10 RBC 3.46 L Hgb 11.2 L Hct 36.4 MCV 105.2 H MCH 32.4 MCHC 30.8 L RDW 15.1 H Plt Count 227 MPV 9.1 Immature Gran % 0.4 Neutrophils % 68.9 Lymphocytes % 16.4 Monocytes % 9.0 Eosinophils % 5.1 Basophils % 0.2 Absolute Neutrophils 6.95 H Absolute Lymphocytes 1.66 Absolute Monocytes 0.91 H Absolute Eosinophils 0.52 Absolute Basophils 0.02 Differential Comment Rbc morph reviewed RBC Morphology See below Macrocytosis 1+ Sodium 138 Potassium 5.1 Chloride 100 Carbon Dioxide 27.5 Anion Gap 10.5 BUN 33 H D Creatinine 6.36 H* D Estimated GFR/1.73 m2 6.32 Glucose 159 H Calcium 8.8 Magnesium 1.9 PFSH Medical History Firocyst with benign ductal hyperplasia Hyperthyroidism [place] (myocardial infarction) Moderate nonproliferative diabetic retinopathy of both eyes Nuclear Sclerosis, Bilateral Rate controlled atrial fibrillation (Acute) Tubular adenoma of colon Type 2 diabetes mellitus Surgical History Amputation Left Great Toe 03/08/2014, Rigth Great Toe 11/30/14 Bilateral above knee amputations Cholecystectomy Colonoscopy (09/18/16) Colporrhaphy Coronary Stent Femoral Endarectomy Right Common with wound vac placement for closure Hysterectomy Family History Father Colon cancer Social History Substance use type: does not use Do you feel safe at home: Yes Do you feel safe in your relationship?: Yes
--- NOTE | 2019-09-12 18:40 | PDOC.CMDIS ---
LACE Index Scoring Tool - Questions: Length of Stay (in days): 2 Acuity (Admit via E.D.?): Yes Comorbidities: Diabetes w/o Complication, Liver or Renal Disease E.D. Visits: 1 - Answers: Total Score: 11 Risk of Readmission: High Risk Care Management Discharge Reason for Hospitalization: FX Humerus Discharge Plan: Naomi will require a short LevelI Swing Bed stay to increase strength and mobility prior to returning home. Dialysis services on an outpatient basis are also required. She has a - schedule. Patient/Family Education Needs: Self management, follow up with PCP
== END 2019-09-12 11:49 | disposition swing bed (61) ==
LOC: ER 20:48 → MS 21:47
PROVIDERS: Admitting Provider General Practice; Emergency Provider Student in an Organized Health Care Education/Training Program; PCP Nurse Practitioner; Visit Provider Internal Medicine
DX: S42.215A Unspecified nondisplaced fracture of surgical neck of left humerus, initial encounter for closed fracture (principal); S63.501A Unspecified sprain of right wrist, initial encounter; V58.6XXA Passenger in pick-up truck or van injured in noncollision transport accident in traffic accident, initial encounter; Z74.2 Need for assistance at home and no other household member able to render care; N18.6 End stage renal disease; Z99.2 Dependence on renal dialysis; Z99.3 Dependence on wheelchair; Z79.01 Long term (current) use of anticoagulants; I48.91 Unspecified atrial fibrillation; E11.22 Type 2 diabetes mellitus with diabetic chronic kidney disease; Z79.4 Long term (current) use of insulin; Z96.653 Presence of artificial knee joint, bilateral; E03.9 Hypothyroidism, unspecified
CPT/HCPCS: 36415; 80048; 85027; 99222; 99233; 99239; 99285; 70450; 72125; 73030; 73110; 83735; 85025; 99217; 99219; 99226; 99284; G0378; J2270; J3490; J8597; L0172; L3650; L3908

== ENCOUNTER 2019-09-12 11:14 | Inpatient (IN) | payer MEDICARE, MEDICAID, SELFPAY ==
[2019-09-12] MEDS: oxyCODONE 5 MG TAB 2.5 MG PO ×2 (12:07→21:33)
[2019-09-12] MEDS: Acetaminophen 325 MG TAB 650 MG PO (12:08)
[2019-09-12] MEDS: Insulin Aspart 300 UNITS/3 ML PEN SC (12:08)
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
--- NOTE | 2019-09-12 14:33 | OCONE_ITS ---
Date of service: 09/12/19 Time of Service: 14:33 Consult Reason Left proximal humerus fracture and Right wrist pain Assessment and Plan Assessment and plan (1) Right wrist sprain: Status: Acute Assessment and plan: Recommend ice, elevation, and gentle ROM. Recommend velcro removable wrist brace for comfort. Would not leave brace on at all times as this would risk skin breakdown. May use wrist for ADLs as needed. This treatment is the same for a sprain and an occult fracture. Qualifiers: Encounter type: initial encounter Qualified Code(s): S63.501A - Unspecified sprain of right wrist, initial encounter (2) Closed fracture of left proximal humerus: Status: Acute Assessment and plan: NWB LUE. Sling when OOB. Otherwise, rest arm/forearm on pillow when seated or in bed. Should start gentle, passive-only ROM when pain allows. May use LUE for ADLs as needed. No acute surgical intervention. Follow up for both injuries as outpatient with orthopedics 2-3 weeks. Case and plan of care discussed with admitting hospitalist Clare Burciaga. Qualifiers: Encounter type: initial encounter Fracture morphology: other fracture Fracture alignment: nondisplaced Qualified Code(s): S42.295A - Other nondisplaced fracture of upper end of left humerus, initial encounter for closed fracture [facility] Medical History Firocyst with benign ductal hyperplasia Hyperthyroidism [place] (myocardial infarction) Moderate nonproliferative diabetic retinopathy of both eyes Nuclear Sclerosis, Bilateral Rate controlled atrial fibrillation (Acute) Tubular adenoma of colon Type 2 diabetes mellitus Surgical History Amputation Left Great Toe 03/08/2014, Rigth Great Toe 11/30/14 Bilateral above knee amputations Cholecystectomy Colonoscopy (09/18/16) Colporrhaphy Coronary Stent Femoral Endarectomy Right Common with wound vac placement for closure Hysterectomy Family History Father Colon cancer Social History Substance use type: does not use Do you feel safe at home: Yes Do you feel safe in your relationship?: Yes Results Imaging Imaging Studies: Left shoulder XR images and report reviewed: positive for minimally displaced 4-part proximal humerus fracture Left wrist XR images and report reviewed: negative for any obvious fracture or dislocation. Bones severely deminieralized and cannot fully exclude non- displaced break.
[2019-09-12 16:27] VITALS: BP 111/51; PULSE 66; RESP 20; TEMP 37.5; O2SAT 93
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
--- NOTE | 2019-09-12 19:10 | CM.SWINGPC ---
Swingbed Plan of Care Plan of care: SWING BED PROGRAM ACTIVITIES/DISCHARGE PLAN OF CARE ACTIVITIES PLAN Date: 09/12/19 Identified Need: Individual Activities Intervention/Plan: TV, Music, Therapy dogs when available, Kelinike Initials CS DISCHARGE PLAN Date: Identified Need: Intervention/Plan: Initials
[2019-09-12] MEDS: Lisinopril 10 MG TAB PO (20:40)
[2019-09-12] MEDS: hydrALAZINE 25 MG TAB 50 MG PO (20:40)
[2019-09-12] MEDS: Ondansetron 4 MG TAB PO (20:41)
[2019-09-12] MEDS: Apixaban 2.5 MG TAB PO (20:41)
[2019-09-12] MEDS: Atorvastatin 40 MG TAB 80 MG PO (21:27)
[2019-09-12 22:57] VITALS: BP 119/54; PULSE 68; RESP 20; TEMP 37; O2SAT 92
[2019-09-13] MEDS: MORPHine 2 MG/ML SYR 1 MG IVP (00:22)
[2019-09-13] MEDS: Lidocaine 5% Patch 1 PATCH TP ×2 (01:26→22:20)
[2019-09-13] MEDS: oxyCODONE 5 MG TAB 2.5 MG PO ×3 (05:24→17:06)
--- NOTE | 2019-09-13 07:37 | OT.INNT ---
Date of service: 09/13/19 Time of Service: 07:37 Occupational Therapy Notes 09/13/19 OT consult received and pt's chart was reviewed. Pt is gone for the morning at Dialysis. OT will resume skilled OT services Friday. Kortney Avalos OTR/[facility]
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
[2019-09-13 11:26] VITALS: BP 126/43; PULSE 96; RESP 16; TEMP 37.3; O2SAT 97
--- NOTE | 2019-09-13 11:28 | PHARADMIT ---
Addendum entered by Chris Olson III 09/16/19 13:15: Pharmacy Note Subjective Patient going to Dialysis tomorrow. Requires Dialysis M W F Objective BP-158/72 No Labs Assessment No new med changes Plan Awaiting placement referrals Original Note: Pharmacy Note Subjective outpatient follow up with orthopedics 2-3 weeks Objective BP-126/43 HR-96 other VS okay pain-8/10 SCr 6.36 (09/12/19) Assessment nursing called to ask about the timing of meds since pts is getting dialysis MWF in the morning and will miss daily meds during that time. May need some adjustments. Nursing to ask pt what time she normally takes her meds when she get back from dialysis. Plan PT/OT consults ordered watch for med changes/time adjustments if needed Swingbed for pain control the following information is from the pts account prior to swinging Admission Pharmacy Clinical Review HUMERUS FRACTURE, (in Bilateral above knee amputee on Dialysis) Code Status Full Code Current Weight Wgt-99 kg Renally Cleared and Narrow Therapeutic Index Meds Bilateral above knee amputee QTc Value / Action Taken QTc-482 in ,.. BP Control, Fever BP-154/66 Tmax-37C Electrolytes reviewed Na- 136 K+4.8 DVT Prophylaxis Eliquis Opiate Usage / Scheduled Bowel Regimen Ordered Yes Yes Plt/SCr for Heparin / Enoxaparin Plts-216 SCr-2.65 INR for Warfarin NA H/H stable, WBC/Bands H&H- 12.1/38.5 WBC- 12.82 Antibiotic appropriateness none Cultures and Sensitivities none Surgical ABX d/c within 24 hr NA DM control / Insulin Dosing BG-119 Aspart Heart Failure (Check EF%) (RAJINDER's, B-Block, Diuretics) Hydralazine, Imdur,Lisinopril, Nadolol, NTG IV to PO Switch No Home Meds Reviewed Yes Home Meds Not Ordered Kris Cerda (Renvela) awaiting
[2019-09-13] MEDS: Apixaban 2.5 MG TAB PO ×2 (13:46→20:25)
[2019-09-13] MEDS: Docusate Sodium 100 MG CAP 200 MG PO (13:46)
[2019-09-13] MEDS: Calcium Carbonate 1.5 GM TAB PO (13:47)
[2019-09-13] MEDS: Cholecalciferol (Vitamin D3) 400 UNIT TAB PO (13:47)
[2019-09-13] MEDS: Isosorbide Mononitrate 60 MG TABCR 180 MG PO (13:47)
[2019-09-13] MEDS: Lisinopril 10 MG TAB PO (13:47)
[2019-09-13] MEDS: Nadolol 40 MG TAB 20 MG PO (13:47)
[2019-09-13] MEDS: Escitalopram 10 MG TAB PO (13:48)
[2019-09-13] MEDS: hydrALAZINE 25 MG TAB 50 MG PO (13:48)
[2019-09-13] MEDS: Patch Removal 1 EACH TP (13:57)
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
[2019-09-13 16:11] VITALS: BP 91/40; PULSE 70; RESP 18; TEMP 37.3; O2SAT 96
[2019-09-13] MEDS: Acetaminophen 325 MG TAB 650 MG PO (17:05)
[2019-09-13] MEDS: Normal Saline Flush 10 ML SYR IVP (17:08)
[2019-09-13 17:43] VITALS: O2SAT 92
[2019-09-13] MEDS: Ondansetron 4 MG TAB PO (18:22)
[2019-09-13 20:30] VITALS: O2SAT 95
[2019-09-13] MEDS: Atorvastatin 40 MG TAB 80 MG PO (22:20)
[2019-09-14 00:08] VITALS: BP 139/63; PULSE 63; RESP 21; TEMP 37; O2SAT 94
[2019-09-14] MEDS: oxyCODONE 5 MG TAB 2.5 MG PO ×2 (05:21→20:55)
[2019-09-14 06:23] LABS: Abs Immature Grans 0.04 k/cumm (0.0-0.09); Absolute Basophil Count 0.03 k/cumm (0.0-0.2); Absolute Eosinophil Count 0.65 k/cumm (0.0-0.7); Basophils % 0.2; Eosinophils % 4.4; HCT 33.8 % (36.0-46.0); HGB 10.4 g/dL (12.0-15.5); Immature Grans % 0.3; Lymphocytes % 9.2; Mean Corp. HGB Concentration 30.8 g/dL (32.0-36.0); Mean Corpuscular Hemoglobin 32.5 pg (27.0-33.0); Mean Corpuscular Volume 105.6 fL (80-95); Monocytes % 6.9; Platelet Count 270 x1000/uL (130-400); RBC Distribution Width 15.2 % (11.7-14.6); White Blood Cell Count 14.73 k/cumm (4.4-10.8)
[2019-09-14 06:33] LABS: Magnesium 1.8 mg/dL (1.8-2.4)
[2019-09-14 06:34] LABS: Absolute Lymphocyte Count 1.36 k/cumm (1.2-3.4); Absolute Monocyte Count 1.02 k/cumm (0.11-0.7); Absolute Neutrophil Count 11.64 k/cumm (1.2-6.7)
[2019-09-14 06:35] LABS: Anion Gap 8.2 mmol/L (3-11); BUN 24 mg/dL (7-18); CO2 29.8 mmol/L (21.0-32.0); Calcium 8.8 mg/dL (8.5-10.1); Chloride 100 mmol/L (98-107); Estimated GFR 8.69 (mL/min/1.73m2); Glucose 121 mg/dL (70-100); Potassium 4.8 mmol/L (3.5-5.1); Sodium 138 mmol/L (136-145)
[2019-09-14 06:44] LABS: CREATININE 4.83 mg/dL (0.55-1.02)
[2019-09-14 06:58] LABS: Diff Comment RBC Morph Reviewed; Macrocytosis 1+
[2019-09-14 07:35] VITALS: BP 127/57; PULSE 63; RESP 20; TEMP 37.1; O2SAT 96
[2019-09-14 08:50] VITALS: O2SAT 95
[2019-09-14] MEDS: hydrALAZINE 25 MG TAB 50 MG PO ×2 (08:51→20:44)
[2019-09-14] MEDS: Isosorbide Mononitrate 60 MG TABCR 180 MG PO (08:51)
[2019-09-14] MEDS: Insulin Glargine 300 UNITS/3 ML PEN 20 UNITS SC (08:52)
[2019-09-14] MEDS: Escitalopram 10 MG TAB PO (08:52)
[2019-09-14] MEDS: Apixaban 2.5 MG TAB PO ×2 (08:52→20:42)
[2019-09-14] MEDS: Docusate Sodium 100 MG CAP 200 MG PO (08:52)
[2019-09-14] MEDS: Nadolol 40 MG TAB 20 MG PO (08:52)
[2019-09-14] MEDS: Calcium Carbonate 1.5 GM TAB PO (08:52)
[2019-09-14] MEDS: Lisinopril 10 MG TAB PO ×2 (08:52→20:44)
[2019-09-14] MEDS: Normal Saline Flush 10 ML SYR IVP ×3 (08:52→23:01)
[2019-09-14] MEDS: Cholecalciferol (Vitamin D3) 400 UNIT TAB PO (08:52)
--- NOTE | 2019-09-14 10:14 | NUR.NOTE ---
Nursing Note: 09/13/19: per request of REGIONAL SALES TRAINER, dialysis center was called to find out about pt's lab. per RN at dialysis, pt has labs drawn each Friday with labs sent through a company called [employer], lab results take several days to return to dialysis center. dialysis center faxed results from last week to [facility]; a copy was provided to REGIONAL SALES TRAINER Angella Jones and a copy is in the chart. CC Lizbeth Espinoza RN updated to process.
[2019-09-14] MEDS: Patch Removal 1 EACH TP (10:22)
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
--- NOTE | 2019-09-14 11:57 | NUR.NOTE ---
Nursing Note: Pt requested all 4 rails up. she is a bilateral LE amputee.
[2019-09-14] MEDS: Insulin Aspart 300 UNITS/3 ML PEN SC (11:58)
--- NOTE | 2019-09-14 15:29 | CHAPLAIN ---
Naomi was in bed when I visited. She was quiet, but responded to a few questions. Before I left she asked me to pray with her and I did.
[2019-09-14 16:07] VITALS: BP 131/60; PULSE 61; RESP 19; TEMP 37; O2SAT 95
[2019-09-14] MEDS: Acetaminophen 325 MG TAB 650 MG PO (16:48)
[2019-09-14] MEDS: Atorvastatin 40 MG TAB 80 MG PO (20:43)
[2019-09-14] MEDS: Lidocaine 5% Patch 1 PATCH TP (20:45)
[2019-09-14] MEDS: MORPHine 2 MG/ML SYR 1 MG IVP (23:00)
[2019-09-14 23:16] VITALS: BP 118/62; PULSE 57; RESP 18; TEMP 36.8; O2SAT 95
[2019-09-15] MEDS: MORPHine 2 MG/ML SYR 1 MG IVP (02:25)
[2019-09-15] MEDS: Normal Saline Flush 10 ML SYR IVP (02:25)
--- NOTE | 2019-09-15 07:52 | OT.INNT ---
Date of service: 09/15/19 Time of Service: 07:52 Occupational Therapy Notes 09/15/19 OT attempted to consult with pt who is out of the building d/t Dialysis with nursing report that pt will return around 11. OT will attempt to consult again with pt tomorrow. Kortney Avalos OTR/[facility]
--- NOTE | 2019-09-15 10:40 | PDOC.CMACT ---
Care Management Activity Note Naomi continues to go to dialysis M/W/F @0530 via EMS. The family has not returned voicemails from last two days. CM has left [facility] for two different CM's and received messages back but no direct contact as of this time.
[2019-09-15] MEDS: Lisinopril 10 MG TAB PO ×2 (11:18→21:02)
[2019-09-15] MEDS: Apixaban 2.5 MG TAB PO ×2 (11:19→21:02)
[2019-09-15] MEDS: Cholecalciferol (Vitamin D3) 400 UNIT TAB PO (11:19)
[2019-09-15] MEDS: Escitalopram 10 MG TAB PO (11:19)
[2019-09-15] MEDS: hydrALAZINE 25 MG TAB 50 MG PO ×2 (11:19→21:02)
[2019-09-15] MEDS: Docusate Sodium 100 MG CAP 200 MG PO (11:19)
[2019-09-15] MEDS: Isosorbide Mononitrate 60 MG TABCR 180 MG PO (11:19)
[2019-09-15] MEDS: Calcium Carbonate 1.5 GM TAB PO (11:19)
[2019-09-15] MEDS: Nadolol 40 MG TAB 20 MG PO (11:19)
[2019-09-15 11:20] VITALS: BP 143/75; PULSE 64; RESP 18; TEMP 36.5; O2SAT 92
[2019-09-15] MEDS: Patch Removal 1 EACH TP (11:20)
[2019-09-15] MEDS: Insulin Glargine 300 UNITS/3 ML PEN 20 UNITS SC (11:28)
[2019-09-15] MEDS: Acetaminophen 325 MG TAB 650 MG PO ×2 (11:28→18:15)
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
[2019-09-15 13:14] VITALS: BP 101/55; PULSE 58; RESP 16; TEMP 36.9; O2SAT 92
[2019-09-15] MEDS: Ondansetron 4 MG TAB PO ×3 (13:15→22:45)
[2019-09-15 15:18] VITALS: O2SAT 92
--- NOTE | 2019-09-15 15:46 | PT.INTREAT ---
Date of service: 09/15/19 Time of Service: 15:46 PT Notes 09/15/19 SUBJECTIVE: Naomi stating she is doing okay today. She is agreeable to PT treatment. OBJECTIVE: [id number] PROM applied to the left GH joint all planes of motion within pain free ranges. PROM into both elbow flexion and extension x 10 reps followed by active wrist flexion and extension x 10 each. Direct time: 12 minutes total time: 12 minutes Aydee Arriola PTA Clinic location: [facility] [place], [place]
[2019-09-15 15:50] VITALS: BP 121/62; PULSE 57; RESP 19; TEMP 37.5; O2SAT 94
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
[2019-09-15] MEDS: Atorvastatin 40 MG TAB 80 MG PO (21:01)
[2019-09-15] MEDS: oxyCODONE 5 MG TAB 2.5 MG PO (21:02)
[2019-09-15] MEDS: Ferrous Sulfate 325 MG TAB PO (21:02)
[2019-09-15] MEDS: Lidocaine 5% Patch 1 PATCH TP (21:04)
[2019-09-15 21:09] VITALS: BP 159/69; PULSE 60; RESP 18; TEMP 37; O2SAT 94
[2019-09-16 00:07] VITALS: O2SAT 94
[2019-09-16 00:09] VITALS: BP 152/62; PULSE 60; RESP 19; TEMP 37; O2SAT 93
[2019-09-16] MEDS: Calcium Carbonate *TUMS* 500 MG CHEW PO (01:03)
[2019-09-16 05:12] VITALS: BP 144/67; PULSE 57; RESP 18; TEMP 36.5; O2SAT 94
[2019-09-16 07:30] VITALS: BP 158/72; PULSE 67; RESP 18; TEMP 36.9; O2SAT 93
[2019-09-16] MEDS: Insulin Glargine 300 UNITS/3 ML PEN 20 UNITS SC (08:54)
[2019-09-16] MEDS: Cholecalciferol (Vitamin D3) 400 UNIT TAB PO (08:55)
[2019-09-16] MEDS: Escitalopram 10 MG TAB PO (08:55)
[2019-09-16] MEDS: Isosorbide Mononitrate 60 MG TABCR 180 MG PO (08:55)
[2019-09-16] MEDS: Lisinopril 10 MG TAB PO ×2 (08:55→21:01)
[2019-09-16] MEDS: hydrALAZINE 25 MG TAB 50 MG PO ×2 (08:55→21:00)
[2019-09-16] MEDS: Nadolol 40 MG TAB 20 MG PO (08:56)
[2019-09-16] MEDS: Calcium Carbonate 1.5 GM TAB PO (08:56)
[2019-09-16] MEDS: Apixaban 2.5 MG TAB PO ×2 (08:56→21:01)
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
[2019-09-16] MEDS: Refresh PLUS Eye Drops 0.4ml 1 EACH OU ×2 (10:27→21:00)
[2019-09-16] MEDS: Patch Removal 1 EACH TP (10:28)
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
[2019-09-16 15:34] VITALS: BP 126/69; PULSE 59; RESP 18; TEMP 37.1; O2SAT 95
[2019-09-16] MEDS: Atorvastatin 40 MG TAB 80 MG PO (20:59)
[2019-09-16] MEDS: Lidocaine 5% Patch 1 PATCH TP (21:00)
[2019-09-16] MEDS: Ferrous Sulfate 325 MG TAB PO (21:01)
[2019-09-16] MEDS: Nystatin POWDER 60 GM JAR TP (22:00)
[2019-09-16 22:19] VITALS: BP 141/64; PULSE 60; RESP 18; TEMP 37.4; O2SAT 96
[2019-09-16] MEDS: oxyCODONE 5 MG TAB 2.5 MG PO (23:40)
[2019-09-17 04:15] VITALS: BP 150/70; PULSE 56; RESP 16; TEMP 36.5; O2SAT 97
[2019-09-17] MEDS: Refresh PLUS Eye Drops 0.4ml 1 EACH OU ×2 (04:54→11:13)
[2019-09-17] MEDS: oxyCODONE 5 MG TAB 2.5 MG PO (05:00)
[2019-09-17] MEDS: Acetaminophen 325 MG TAB 650 MG PO (05:00)
--- NOTE | 2019-09-17 06:36 | NUR.NOTE ---
Patient left at 5:30 with [facility] for dialysis. She was medicated with prn analgesics, due to 5/10 pain. Pt left conscious, alert and rational
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
[2019-09-17] MEDS: Isosorbide Mononitrate 60 MG TABCR 180 MG PO (11:14)
[2019-09-17] MEDS: Nadolol 40 MG TAB 20 MG PO (11:14)
[2019-09-17] MEDS: Escitalopram 10 MG TAB PO (11:14)
[2019-09-17] MEDS: Lisinopril 10 MG TAB PO (11:14)
[2019-09-17] MEDS: Cholecalciferol (Vitamin D3) 400 UNIT TAB PO (11:14)
[2019-09-17] MEDS: Calcium Carbonate 1.5 GM TAB PO (11:14)
[2019-09-17] MEDS: Apixaban 2.5 MG TAB PO (11:14)
[2019-09-17] MEDS: Ondansetron 4 MG TAB PO (11:14)
[2019-09-17] MEDS: hydrALAZINE 25 MG TAB 50 MG PO (11:14)
[2019-09-17] MEDS: Patch Removal 1 EACH TP (11:15)
[2019-09-17] MEDS: Nystatin POWDER 60 GM JAR TP (11:15)
[2019-09-17] MEDS: Docusate Sodium 100 MG CAP 200 MG PO (11:24)
[2019-09-17] MEDS: Insulin Glargine 300 UNITS/3 ML PEN 20 UNITS SC (11:24)
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
== END 2019-09-17 13:00 | disposition skilled nursing facility (03) | DRG 561 ==
PROVIDERS: Nurse Practitioner Family; Admitting Provider Internal Medicine; PCP Nurse Practitioner; Visit Provider Internal Medicine
DX: S42.215D Unspecified nondisplaced fracture of surgical neck of left humerus, subsequent encounter for fracture with routine healing (principal); S63.501D Unspecified sprain of right wrist, subsequent encounter; V58 Occupant of pick-up truck or van injured in noncollision transport accident; Z74.2 Need for assistance at home and no other household member able to render care; Z99.2 Dependence on renal dialysis; Z99.3 Dependence on wheelchair; Z79.01 Long term (current) use of anticoagulants; I48.91 Unspecified atrial fibrillation; E11.22 Type 2 diabetes mellitus with diabetic chronic kidney disease; Z79.4 Long term (current) use of insulin; E03.9 Hypothyroidism, unspecified; Z89.512 Acquired absence of left leg below knee; Z89.511 Acquired absence of right leg below knee; Z71.3 Dietary counseling and surveillance
CPT/HCPCS: 36415; 80048; 82947; 97110; 97140; 97162; 97166; 99223; 99239; 99255; 99304; 99306; 99316; 83735; 85025; J2270; J3490; J8597

== ENCOUNTER 2022-06-26 10:14 | Emergency (ER) | payer MEDICARE, MEDICAID, SELFPAY ==
[2022-06-26] VITALS (51 sets, daily range): BP systolic 137–166; BP diastolic 35–46; PULSE 34–47; RESP 7–21; TEMP 37.1; O2SAT 82–99
--- NOTE | 2022-06-26 10:15 | RT.EKG_ITS ---
APPROVED REPORT Exam: Resting ECG Reason for Exam: bradycardia Patient Location: E HR:40 bpm ECG Measurements Heart Rate 40 AXIS WY [id number] P [id number] QRSd 96 QRS 61 QT 592 T 123 QTc 472 Conclusion Junctional rhythm...absent P waves, slow V-rate Abnormal T, consider ischemia, lateral leads...T <-0.20mV, I aVL V5 V6 Abnormal Electrocardiogram
[2022-06-26 10:55] LABS: Source Nasal/Nares
[2022-06-26 10:59] LABS: Abs Immature Grans 0.06 10^3/uL (0.0-0.06); Absolute Basophil Count 0.05 10^3/uL (0.0-0.2); Absolute Eosinophil Count 0.25 10^3/uL (0.0-0.7); Absolute Lymphocyte Count 1.01 10^3/uL (1.2-3.4); Absolute Monocyte Count 0.71 10^3/uL (0.1-0.8); Absolute Neutrophil Count 7.26 10^3/uL (1.2-6.7); Basophils % 0.5; Eosinophils % 2.7; HCT 36.8 % (36.0-46.0); HGB 11.8 g/dL (11.2-15.7); Immature Grans % 0.6; Lymphocytes % 10.8; MCH 32.3 pg (27.0-33.0); MCHC 32.1 % (32.0-36.0); MCV 101 fL (80-95); MPV 9.2 fL (8.0-11.0); Monocytes % 7.6; Neutrophils % 77.8; Platelet Count 143 10^3/uL (130-400); RBC 3.65 10^6/uL (3.93-5.22); RDW-SD 62.4 fL; WBC 9.34 10^3/uL (4.4-10.8)
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
[2022-06-26 11:27] LABS: ALT 18 U/L (14-59); AST 15 U/L (15-37); Alkaline Phosphatase 149 U/L (46-116); Anion Gap 6.7 mmol/L (3-11); BUN 11 mg/dL (7-18); Bilirubin, Total 0.5 mg/dL (0.2-1.0); CO2 33.3 mmol/L (21.0-32.0); CREATININE 2.5 mg/dL (0.55-1.02); Calcium 8.6 mg/dL (8.5-10.1); Chloride 100 mmol/L (98-107); Estimated GFR 18.44 (mL/min/1.73m2); Glucose 72 mg/dL (74-106); Magnesium 1.8 mg/dL (1.8-2.4); Potassium 3.5 mmol/L (3.5-5.1); Sodium 140 mmol/L (136-145); TSH (W/Ref FT4) 1.35 uIU/mL (0.36-3.74); Total Protein 7.1 g/dL (6.4-8.2); Troponin I < 50 ng/L (<or=60)
--- NOTE | 2022-06-26 13:13 | NUR.NOTE ---
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 This health technical writer went in patients room and noted that the patients heart rate got as low as 34 and had complaints of back pain. RN notified. Nursing Note:
[2022-06-26 14:09] LABS: COVID-19 PCR Negative (Negative)
== END 2022-06-26 14:40 ==
PROVIDERS: Emergency Provider Student in an Organized Health Care Education/Training Program; PCP Nurse Practitioner
DX: I49.8 Other specified cardiac arrhythmias (principal); E11.22 Type 2 diabetes mellitus with diabetic chronic kidney disease; N18.6 End stage renal disease; I25.10 Atherosclerotic heart disease of native coronary artery without angina pectoris; I25.2 Old myocardial infarction; Z95.5 Presence of coronary angioplasty implant and graft; Z99.2 Dependence on renal dialysis; Z20.822 Contact with and (suspected) exposure to COVID-19
CPT/HCPCS: 36415; 80053; 87635; 93005; 96374; 99284; 99285; 83735; 84443; 84484; 85025; 93010

== ENCOUNTER 2022-08-02 11:13 | Emergency (ER) | payer OTHER, MEDICAID, SELFPAY ==
[2022-08-02] VITALS (199 sets, daily range): BP systolic 71–209; BP diastolic 28–114; PULSE 54–170; RESP 12–30; TEMP 36.3–36.6; O2SAT 88–100
--- NOTE | 2022-08-02 11:00 | RT.EKG_ITS ---
APPROVED REPORT Exam: Resting ECG Reason for Exam: SLURRED SPEECH Patient Location: E HR:62 bpm ECG Measurements Heart Rate 62 AXIS WA 49 P 0 QRSd 103 QRS 36 QT 474 T 241 QTc 483 Conclusion Ventricular-paced complexes...other complexes also detected Abnormal T, consider ischemia, diffuse leads...T <-0.20mV, ant/lat/inf
--- NOTE | 2022-08-02 11:15 | DI.CT_ITS ---
Exam(s) CT HEAD - STROKE PROTOCOL EXAM: CT HEAD - STROKE PROTOCOL CLINICAL HISTORY: altered, headache. TECHNIQUE: Imaging Protocol: Axial computed tomography images with coronal and sagittal reformatted images were created and reviewed COMPARISON: CT CT HEAD CERVICAL SPINE WO from 09/10/2019 FINDINGS: There is moderate generalized cerebral atrophy. No evidence of acute intracranial hemorrhage, mass effect, or midline shift. The orbital structures are unremarkable. The temporal bone structures appear intact. Calvarium: Normal. Visualized Paranasal sinuses/Mastoids: Clear. IMPRESSION: No evidence of acute intracranial process. RADIATION DOSE DELIVERED: 847.52mGy.cm Total DLP 847.52mGy.cm Total DLP !Error CTDIvol DATA REPOSITORY: All CT scans at this facility are submitted to the National Radiology Data Registry (NRDR) Dose Index Registry (DIR) with the [employer] ([employer]). RADIATION OPTIMIZATION: All CT scans at this facility use at least one of these dose optimization te chniques: automated exposure control; mA and/or kV adjustment per patient size (includes targeted exa ms where dose is matched to clinical indication); or iterative reconstruction.
[2022-08-02 12:54] LABS: Abs Immature Grans 0.04 10^3/uL (0.0-0.06); Absolute Basophil Count 0.04 10^3/uL (0.0-0.2); Absolute Eosinophil Count 0.14 10^3/uL (0.0-0.7); Absolute Lymphocyte Count 1.11 10^3/uL (1.2-3.4); Absolute Monocyte Count 0.49 10^3/uL (0.1-0.8); Absolute Neutrophil Count 6.29 10^3/uL (1.2-6.7); Basophils % 0.5; Eosinophils % 1.7; HCT 34.8 % (36.0-46.0); HGB 11.4 g/dL (11.2-15.7); Immature Grans % 0.5; Lymphocytes % 13.7; MCH 32.5 pg (27.0-33.0); MCHC 32.8 % (32.0-36.0); MCV 99 fL (80-95); Neutrophils % 77.6; Platelet Count 180 10^3/uL (130-400); RBC 3.51 10^6/uL (3.93-5.22); RDW 16.6 % (11.7-14.6); WBC 8.11 10^3/uL (4.4-10.8)
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
[2022-08-02 13:07] LABS: Ammonia 12 umol/L (11-32)
[2022-08-02 13:12] LABS: ALT 17 U/L (14-59); AST 21 U/L (15-37); Albumin 3.3 g/dL (3.4-5.0); Alkaline Phosphatase 136 U/L (46-116); Anion Gap 6.7 mmol/L (3-11); BUN 22 mg/dL (7-18); Bilirubin, Total 0.5 mg/dL (0.2-1.0); CO2 32.3 mmol/L (21.0-32.0); Calcium 9.3 mg/dL (8.5-10.1); Chloride 99 mmol/L (98-107); Estimated GFR 11.33 (mL/min/1.73m2); Glucose 121 mg/dL (74-106); Magnesium 1.9 mg/dL (1.8-2.4); Potassium 3.8 mmol/L (3.5-5.1); Sodium 138 mmol/L (136-145); Total Protein 7.3 g/dL (6.4-8.2); Troponin I < 50 ng/L (<or=60)
[2022-08-02 13:14] LABS: CREATININE 3.8 mg/dL (0.55-1.02)
[2022-08-02 13:32] LABS: Bilirubin Small (Negative); Blood Small (Negative); Clarity Sl Cloudy (Clear); Glucose 100 mg/dL (Negative); Ketones Negative (Negative); Leukocyte Esterase Small (Negative); Nitrite Negative (Negative); Specific Gravity 1.015 (1.005-1.025); Urobilinogen 0.2 EU/dL (Up TO 0.2)
[2022-08-02] MEDS: Labetalol 100 MG/20 ML VIAL 20 MG IVP (13:49)
--- NOTE | 2022-08-02 16:56 | ED.PROG_ITS ---
Date of service: 08/02/22 Time of Service: 15:00 Medical Decision Making 1500 -- please see Dr. Sabillon's note for initial presentation, exam and plan. Case endorsed with plan to transfer to a tertiary facility with dialysis due to hypertensive encephalopathy. Patient is a labetalol drip and blood pressure is responding well, currently 127/44. 165 -- no capacity at [facility]. Will continue to attempt transfer of facilities offer dialysis. 1914 --no capacity at any local facilities including [facility], [facility], [facility], [facility], [facility], [facility], [place], [facility], [place], [facility] and women. Patient has been off the labetalol drip for approximately 40 minutes and pressure has remained within normal limits. Blood pressure currently 127/35. Patient states she would like to go home. We will continue to monitor and consider discharge to home. Disposition decision made weighing the risks and benefits of hospitalization versus outpatient treatment, the risk for further decompensation, and the patient's wishes. 2100 --patient observed for another 2 hours during high volume and acuity in the emergency department. Her blood pressure has remained within normal limits and she would like to go home. Review of patient's medications notes that she has been prescribed propranolol and nadolol as the last month. Patient states she is unsure if she is taking these medications. Discussed that she needs to follow-up with her primary care doctor within the next week for reevaluation and starting a beta-maru if not already taking one. Medical Records Medical records reviewed: Yes I reviewed the patient's medical records. Lab Data Lab results reviewed: Yes I reviewed the patient's lab results. Labs: 08/02/22 13:15 Urine - Cath Not Specified Urine Culture - Preliminary Laboratory Tests Range/Units 08/02/22 08/02/22 08/02/22 12:46 12:46 12:46 WBC (4.4-10.8) 10^3/uL 8.11 RBC (3.93-5.22) 10^6/uL 3.51 L Hgb (11.2-15.7) g/dL 11.4 Hct (36.0-46.0) % 34.8 L MCV (80-95) fL 99 H MCH (27.0-33.0) pg 32.5 MCHC (32.0-36.0) % 32.8 RDW (11.7-14.6) % 16.6 H Plt Count (130-400) 10^3/uL 180 MPV (8.0-11.0) fL 9.0 Immature Gran % 0.5 Neutrophils % 77.6 Lymphocytes % 13.7 Monocytes % 6.0 Eosinophils % 1.7 Basophils % 0.5 Nucleated RBC % (0.0-0.3) % 0.0 Absolute Neutrophils (1.2-6.7) 10^3/uL 6.29 Absolute Lymphocytes (1.2-3.4) 10^3/uL 1.11 L Absolute Monocytes (0.1-0.8) 10^3/uL 0.49 Absolute Eosinophils (0.0-0.7) 10^3/uL 0.14 Absolute Basophils (0.0-0.2) 10^3/uL 0.04 Sodium (136-145) mmol/L 138 Potassium (3.5-5.1) mmol/L 3.8 Chloride (98-107) mmol/L 99 Carbon Dioxide (21.0-32.0) mmol/L 32.3 H Anion Gap (3-11) mmol/L 6.7 BUN (7-18) mg/dL 22 H Creatinine (0.55-1.02) mg/dL 3.8 H* Est GFR (CKD-EPI 2020) (mL/min/1.73m2) 11.33 Glucose (74-106) mg/dL 121 H Calcium (8.5-10.1) mg/dL 9.3 Magnesium (1.8-2.4) mg/dL 1.9 Total Bilirubin (0.2-1.0) mg/dL 0.5 AST (15-37) U/L 21 ALT (14-59) U/L 17 Alkaline Phosphatase (46-116) U/L 136 H Ammonia (11-32) umol/L 12 Troponin I (<or=60) ng/L < 50 Total Protein (6.4-8.2) g/dL 7.3 Albumin (3.4-5.0) g/dL 3.3 L Urine Color (Yellow) Urine Clarity (Clear) Urine pH (5-8) Ur Specific Randolph (1.005-1.025) Urine Protein (Negative) mg/dL Urine Ketones (Negative) mg/dL Urine Blood (Negative) Urine Nitrite (Negative) Urine Bilirubin (Negative) Urine Urobilinogen (Up TO 0.2) EU/dL Ur Leukocyte Esterase (Negative) Urine Glucose (Negative) mg/dL Urine Opiates Screen Urine Methadone Screen Ur Barbiturates Screen Ur Tricyclics Screen Ur Amphetamines Screen U Benzodiazepines Scrn Urine Cocaine Screen Ur THC Screen Range/Units 08/02/22 08/02/22 13:05 13:14 WBC (4.4-10.8) 10^3/uL RBC (3.93-5.22) 10^6/uL Hgb (11.2-15.7) g/dL Hct (36.0-46.0) % MCV (80-95) fL MCH (27.0-33.0) pg MCHC (32.0-36.0) % RDW (11.7-14.6) % Plt Count (130-400) 10^3/uL MPV (8.0-11.0) fL Immature Gran % Neutrophils % Lymphocytes % Monocytes % Eosinophils % Basophils % Nucleated RBC % (0.0-0.3) % Absolute Neutrophils (1.2-6.7) 10^3/uL Absolute Lymphocytes (1.2-3.4) 10^3/uL Absolute Monocytes (0.1-0.8) 10^3/uL Absolute Eosinophils (0.0-0.7) 10^3/uL Absolute Basophils (0.0-0.2) 10^3/uL Sodium (136-145) mmol/L Potassium (3.5-5.1) mmol/L Chloride (98-107) mmol/L Carbon Dioxide (21.0-32.0) mmol/L Anion Gap (3-11) mmol/L BUN (7-18) mg/dL Creatinine (0.55-1.02) mg/dL Est GFR (CKD-EPI 2020) (mL/min/1.73m2) Glucose (74-106) mg/dL Calcium (8.5-10.1) mg/dL Magnesium (1.8-2.4) mg/dL Total Bilirubin (0.2-1.0) mg/dL AST (15-37) U/L ALT (14-59) U/L Alkaline Phosphatase (46-116) U/L Ammonia (11-32) umol/L Troponin I (<or=60) ng/L Total Protein (6.4-8.2) g/dL Albumin (3.4-5.0) g/dL Urine Color (Yellow) Yellow Urine Clarity (Clear) Sl Cloudy Urine pH (5-8) 7.0 Ur Specific Randolph (1.005-1.025) 1.015 Urine Protein (Negative) mg/dL 100 H Urine Ketones (Negative) mg/dL Negative Urine Blood (Negative) Small H Urine Nitrite (Negative) Negative Urine Bilirubin (Negative) Small H Urine Urobilinogen (Up TO 0.2) EU/dL 0.2 Ur Leukocyte Esterase (Negative) Small H Urine Glucose (Negative) mg/dL 100 Urine Opiates Screen Cancelled Urine Methadone Screen Cancelled Ur Barbiturates Screen Cancelled Ur Tricyclics Screen Cancelled Ur Amphetamines Screen Cancelled U Benzodiazepines Scrn Cancelled Urine Cocaine Screen Cancelled Ur THC Screen Cancelled ECG Data Attestation: I personally reviewed and interpreted this ECG (s) as follows: Interpretation: rate of 62, v-paced, t wave inversion anterolateral leads, no stemi. Sign Out Sign Out Data: Sign Out Comment: Care signed out to Dr. Orozco with plan follow-up transfer request from with [facility] Last updated by Evert Sabillon MD at 08/02/22 16:28 Discharge Plan Disposition Patient Disposition: HOME Condition: Stable Discharge Details Clinical Impression: Confusion, Accelerated hypertension Primary Care Provider: Serene Reddy ED Provider: Pattie Orozco Home Meds and New Rx's Prescriptions: Continued levothyroxine 137 MCG tablet 137 mcg PO QAM ferrous sulfate [iron] 325 MG tablet 325 mg PO HS nitroglycerin [Nitrostat] 0.4 MG tablet, sublingual 0.4 mg Sublingual DIRECTED PRN hydralazine 50 MG tablet 50 mg PO BID lisinopril 2.5 MG tablet 10 mg PO BID Novolog PenFill U-100 Insulin 100 UNIT/1 ML cartridge 6 - 10 u Sub-Q AC Eliquis 2.5 mg Tablet 2.5 mg PO BID atorvastatin [Lipitor] 80 mg Tablet 80 mg PO HS ondansetron HCl [Zofran] 4 mg Tablet 4 mg PO Q6H PRN isosorbide mononitrate 120 mg Tablet Extended Release 24 Hr 180 mg PO QAM nadolol 20 mg Tablet 20 mg PO DAILY escitalopram oxalate [Lexapro] 10 mg Tablet 10 mg PO DAILY Calcium 600 + D(3) 600-125 mg-unit Tablet 1 tab PO HS Sarna Original 0.5-0.5 % Lotion See Rx Instructions .ROUTE .COMPLEX Rx Instructions: sarna lotion with menthol PRN Velphoro 500 mg Tablet,Chewable 500 mg PO QPC Rx Instructions: suspended until further notice amlodipine 10 mg tablet 10 tab PO HS Label Comments: TAKE 1 TABLET BY MOUTH ONCE DAILY DIRECTED AT 10PM Colace Clear 50 mg Capsule 100 mg PO DAILY Humulin N NPH U-100 Insulin 100 unit/mL suspension 0.5 ml SUBCUT DAILY Label Comments: INJECT 25 UNITS SUBCUTANEOUSLY ONCE DAILY Nephro-Cal 0.8 mg tablet 1 tab PO DAILY Label Comments: TAKE 1 TABLET BY MOUTH EVERY DAY DIRECTED hydralazine 50 mg tablet 50 mg PO BID Label Comments: TAKE 1 TABLET BY MOUTH TWICE DAILY WITH FOOD insulin lispro [Humalog KwikPen Insulin] 100 unit/mL Insulin Pen 10 - 20 unit SUBCUT QID sennosides 17.2 mg Tablet 34.4 mg PO DAILY PRN Lantus Solostar U-100 Insulin 300 UNITS/3 ML insulin pen 20 unit SQ DAILY acetaminophen 650 MG tablet extended release 650 mg PO Q6H PRN PRN lidocaine [Lidoderm] 5 % Adhesive Patch,Medicated 1 patch topical DAILY@2200 Qty: 0 0RF calcium carbonate 200 mg calcium (500 mg) Tablet,Chewable 500 mg PO QID PRN PRNQty: 0 0RF oxycodone 5 mg Tablet 2.5 mg PO Q8H PRN PRNQty: 12 0RF nystatin 100,000 unit/mL Suspension 500,000 units PO 5X/DAY Qty: 0 0RF Discharge Instructions Instructions: Hypertension (ED) Additional Instructions: Your blood pressure improved while here in the emergency department. Continue your regular medications as directed. If you are not taking a beta- maru such as metoprolol, nadolol or propranolol, you may need to be started or restarted on this medication by your primary care doctor. Follow-up with your primary care doctor in 1 week. Return to the emergency department with any worsening or new concerning symptoms. Discharge Data Discharge Date/Time-TO BE ENTERED AT DEPARTURE: 08/02/22 23:32 Discharge Physician: Pattie Orozco
--- NOTE | 2022-08-02 17:21 | NUR.NOTE ---
Patient placed on bedpan. Large loose stool.
[2022-08-02] MEDS: Acetaminophen 325 MG TAB 650 MG PO (22:07)
== END 2022-08-02 23:32 | disposition home or self-care (01) ==
PROVIDERS: Student in an Organized Health Care Education/Training Program; Emergency Provider Physician Assistant; PCP Nurse Practitioner
DX: I67.4 Hypertensive encephalopathy (principal); I12.0 Hypertensive chronic kidney disease with stage 5 chronic kidney disease or end stage renal disease; N18.6 End stage renal disease; R41.0 Disorientation, unspecified; Z99.2 Dependence on renal dialysis
CPT/HCPCS: 80053; 80307; 93005; 96365; 96366; 96375; 99291; 70450; 81003; 82140; 83735; 84484; 85025; 87086; 93010